=== PATIENT | female | born 1985 | race Caucasian/White ===

== ENCOUNTER 2016-10-07 08:47 | Inpatient (IN) | payer OTHER ==
[~2016-10-07] VITALS: Ht 165.1 cm; Wt 72.2 kg
[~2016-10-07 08:47] MED LIST: IBUP800T PO; OXYC-302 PO; PREN1TAB27 PO
[2016-10-07 08:59] VITALS: BP 112/62
[2016-10-07] MEDS ORDERED: OXYTOCIN 30U/ 0.9% NaCL 500ML 500 ML ONE (09:14)
[2016-10-07] MEDS ORDERED: LIDOCAINE 1%, 20ML ONE (09:14)
[2016-10-07] MEDS ORDERED: NEWBORN KIT ONE (09:14)
[2016-10-07] MEDS ORDERED: MISOPROSTOL 200 MCG TABLET ONE (09:14)
[2016-10-07] MEDS ORDERED: D5%-LACTATED RINGERS 1,000 ML IV SCH (09:16)
[2016-10-07] MEDS ORDERED: OXYTOCIN 30U/ 0.9% NaCL 500ML 500 ML IV ONE (09:16)
[2016-10-07] MEDS ORDERED: LACTATED RINGERS 1,000 ML IV SCH (09:16)
[2016-10-07] MEDS ORDERED: FENTANYL PF 100 MCG/2ML IV PRN (09:30)
[2016-10-07] MEDS ORDERED: METOCLOPRAMIDE 5 MG/ML, 2ML IVPush PRN (09:30)
[2016-10-07] MEDS ORDERED: FENTANYL PF 100 MCG/2ML IVPush PRN (09:30)
[2016-10-07] MEDS ORDERED: SODIUM CITRATE/CITRIC ACID 30 ML UDC PO PRN (09:30)
[2016-10-07] MEDS ORDERED: ONDANSETRON 2MG/ML, 2ML IVPush PRN (09:30)
[2016-10-07] MEDS ORDERED: TERBUTALINE 1 MG/ML, 1ML IVPush PRN (09:30)
[2016-10-07] MEDS ORDERED: OXYTOCIN 30U/ 0.9% NaCL 500ML 500 ML IV SCH (10:39)
[2016-10-07] MEDS ORDERED: IBUPROFEN 600 MG TABLET ONE ×2 (10:54→21:38)
[2016-10-07] MEDS: IBUPROFEN 600 MG TABLET PO PRN ×2 (10:56→21:42)
[2016-10-07] MEDS ORDERED: OXYcodone/APAP 5/325MG TABLET PO PRN ×2 (11:00)
[2016-10-07] MEDS ORDERED: CARBOPROST TROMETHAMINE 250 MCG/ML, 1ML IM PRN (11:00)
[2016-10-07] MEDS ORDERED: BISACODYL 10 MG SUPP PR PRN (11:00)
[2016-10-07] MEDS ORDERED: MAGNESIUM HYDROXIDE 8%, 30ML UDC PO PRN (11:00)
[2016-10-07] MEDS ORDERED: MISOPROSTOL 200 MCG TABLET PR PRN (11:00)
[2016-10-07] MEDS ORDERED: CALCIUM CARBONATE 500 MG TAB.CHEW PO PRN (11:00)
[2016-10-07] MEDS ORDERED: DIPH,PERTUSS(ACELL),TET VAC/PF NC IM-VACC PRN (11:00)
[2016-10-07] MEDS ORDERED: ONDANSETRON 2MG/ML, 2ML IV PRN (11:00)
[2016-10-07] MEDS ORDERED: OXYTOCIN 10 UNITS/ML, 1ML IM PRN (11:00)
[2016-10-07] MEDS ORDERED: MEASLES,MUMPS&RUBELLA VACC/PF 0.5 ML SQ-VACC PRN (11:00)
[2016-10-07] MEDS ORDERED: ACETAMINOPHEN 325 MG TABLET PO PRN ×2 (11:00)
[2016-10-07] MEDS ORDERED: GLYCERIN ADULT SUPP PR PRN (11:00)
[2016-10-07] MEDS ORDERED: DOCUSATE 100 MG CAPSULE PO PRN (11:00)
[2016-10-07] MEDS ORDERED: METHYLERGONOVINE 0.2 MG/ML IM PRN (11:00)
[2016-10-07] MEDS ORDERED: RHOGAM FROM BLOOD BANK 1 NOTE EA IM/IV ONE (11:00)
[2016-10-07] MEDS ORDERED: METOCLOPRAMIDE 5 MG/ML, 2ML IV PRN (11:00)
[2016-10-07 12:05] VITALS: BP 115/75
[2016-10-07 15:06] VITALS: BP 98/53
[2016-10-07 20:14] VITALS: BP 99/69
[2016-10-07] MEDS ORDERED: DOCUSATE 100 MG CAPSULE ONE (21:39)
[2016-10-08 00:30] VITALS: BP 89/44
[2016-10-08 06:50] VITALS: BP 99/53
[2016-10-08] MEDS ORDERED: PRENATAL VIT/IRON/FA 1 EACH TABLET PO SCH (09:00)
== END 2016-10-08 11:30 | disposition home or self-care (01) | DRG 775 ==
LOC: LDOP 08:47 → LDIP 09:17 → UNDODISIN 11:54 → 2NW 12:01
PROVIDERS: ADMIT Obstetrics & Gynecology; ATTEND Obstetrics & Gynecology
PROC: 10E0XZZ Delivery of Products of Conception, External Approach (ICD-10-PCS; principal; 2016-10-07)
PROC: 0KQM0ZZ Repair Perineum Muscle, Open Approach (ICD-10-PCS; 2016-10-07)
DX: O69.81X0 Labor and delivery complicated by cord around neck, without compression, not applicable or unspecified (principal); O70.1 Second degree perineal laceration during delivery; Z37.0 Single live birth; O77.0 Labor and delivery complicated by meconium in amniotic fluid; Z3A.39 39 weeks gestation of pregnancy
CPT/HCPCS: 36415; 85025; 86850; 86900; J7120